=== PATIENT | female | born 1945 | race Caucasian/White ===

== ENCOUNTER 2016-06-02 10:40 | Emergency (ER) | payer OTHER ==
[~2016-06-02] VITALS: Ht 157.5 cm; Wt 76.2 kg
[2016-06-02 10:41] VITALS: BP 143/74
[2016-06-02] MEDS ORDERED: PARO30TA PO (10:59)
[2016-06-02] MEDS ORDERED: KLOR20PO12 GT (10:59)
[2016-06-02] MEDS ORDERED: one a day (10:59)
[2016-06-02] MEDS ORDERED: SIMV20TA2 PO (10:59)
[2016-06-02] MEDS ORDERED: BYDU1INJ SC (10:59)
[2016-06-02] MEDS ORDERED: METO-209 PO (10:59)
[2016-06-02] MEDS ORDERED: CALC600T57 PO (10:59)
[2016-06-02] MEDS ORDERED: ALPR2TAB3 PO (10:59)
[2016-06-02] MEDS ORDERED: AMLO1TAB36 PO (10:59)
[2016-06-02] MEDS ORDERED: NASA1SPR (10:59)
[2016-06-02] MEDS ORDERED: HYDR12.55 PO (10:59)
[2016-06-02] MEDS ORDERED: METF1000 PO (10:59)
[2016-06-02] MEDS ORDERED: DOXA1TAB73 PO (10:59)
--- NOTE | 2016-06-02 12:23 | REP ---
RIGHT HUMERUS: 06/02/2016 CLINICAL HISTORY: Trauma. COMPARISON: Right shoulder 06/23/2013. FINDINGS: Two views show a right total shoulder arthroplasty present since the severely comminuted humeral head and neck fracture in 2013. The two articular components are unremarkable. No hardware failure. No acute fracture. AC joint arthritis, but no fracture of the clavicle, ribs, visible scapula or humerus. IMPRESSION: 1. No acute fracture. A right total shoulder arthroplasty evident. No hardware failure. Signed by Jose Daniel Barrow MD 06/02/2016 05:16 P
--- NOTE | 2016-06-02 12:24 | REP ---
RIGHT WRIST COMPLETE: 06/02/2016 COMPARISON: 06/30/2013. CLINICAL HISTORY: Trauma. FINDINGS: Four views show the distal radius and ulna grossly intact without fracture or avulsion. The carpal bones and their joint spaces are preserved. There is very minimal degenerative change in some of the carpal joints. First CMC joint degenerative changes are noted. The other CMC joints show lesser degenerative change. There is no fracture visible in the proximal metacarpals. IMPRESSION: 1. Some soft tissue swelling dorsal aspect of the wrist but no visible fracture, avulsion or subluxation. Degenerative changes are noted at the first CMC joint and to a lesser extent the carpal articulations. Signed by Jose Daniel Barrow MD 06/02/2016 05:16 P
== END 2016-06-02 12:23 | disposition home or self-care (01) ==
LOC: M ED 11:30
DX: S63.521A Sprain of radiocarpal joint of right wrist, initial encounter (principal); W19.XXXA Unspecified fall, initial encounter; Y92.89 Other specified places as the place of occurrence of the external cause; Y93.89 Activity, other specified; Y99.0 Civilian activity done for income or pay; Z96.611 Presence of right artificial shoulder joint; Z88.0 Allergy status to penicillin; Z88.1 Allergy status to other antibiotic agents; Z79.899 Other long term (current) drug therapy; Z79.84 Long term (current) use of oral hypoglycemic drugs

== ENCOUNTER → 2016-08-07 | Outpatient (REF) | payer OTHER ==
[~2016-08-07] MED LIST: ALPR2TAB3 PO; AMLO1TAB36 PO; BYDU1INJ SC; CALC600T57 PO; DOXA1TAB73 PO; HYDR12.55 PO; KLOR20PO12 GT; METF1000 PO; METO-209 PO; NASA1SPR; PARO30TA PO; SIMV20TA2 PO; one a day
[2016-08-07 13:14] LABS: ALBUMIN/GLOBULIN RATIO 1.33 (1.00-1.93); ALKALINE PHOSPHATASE 85 U/L (45-117); ALT/SGPT 25 U/L (12-78); ANION GAP 8 MEQ/L (8-16); AST/SGOT 12 U/L (15-37); BILIRUBIN,TOTAL 0.5 MG/DL (0.2-1.0); BLOOD UREA NITROGEN 18 MG/DL (7-18); CALCIUM LEVEL 9.5 MG/DL (8.8-10.2); CARBON DIOXIDE LEVEL 27 MEQ/L (21-32); CHLORIDE LEVEL 102 MEQ/L (98-107); CHOLESTEROL LEVEL 136 MG/DL (<200); CREATININE FOR GFR 0.76 MG/DL (0.55-1.02); GLOMERULAR FILTRATION RATE > 60.0 (>45); GLUCOSE, FASTING 152 MG/DL (80-110); POTASSIUM SERUM 3.8 MEQ/L (3.5-5.1); SODIUM LEVEL 137 MEQ/L (136-145); TRIGLYCERIDES LEVEL 165 MG/DL (<150)
[2016-08-07 13:27] LABS: MEAN CORPUSCULAR HEMOGLOBIN 32.3 pg (27.0-33.0); MEAN CORPUSCULAR HGB CONC 34.1 g/dl (32.0-36.5); MEAN CORPUSCULAR VOLUME 94.9 fl (80.0-96.0); RED CELL DISTRIBUTION WIDTH 13.1 % (11.5-14.5); WHITE BLOOD COUNT 6.4 K/mm3 (4.0-10.0)
== END ==
LOC: M SFHCPLAZ 07:55
PROVIDERS: ATTEND Internal Medicine
DX: J30.9 Allergic rhinitis, unspecified (principal); E11.9 Type 2 diabetes mellitus without complications; E78.00 Pure hypercholesterolemia, unspecified

== ENCOUNTER → 2017-02-20 | Outpatient (REF) | payer OTHER ==
[2017-02-20 11:50] LABS: ALBUMIN 3.8 GM/DL (3.2-5.2); ALBUMIN/GLOBULIN RATIO 1.27 (1.00-1.93); ALKALINE PHOSPHATASE 80 U/L (45-117); ALT/SGPT 22 U/L (12-78); ANION GAP 7 MEQ/L (8-16); AST/SGOT 17 U/L (7-37); BILIRUBIN,TOTAL 0.6 MG/DL (0.2-1.0); BLOOD UREA NITROGEN 15 MG/DL (7-18); CALCIUM LEVEL 9.3 MG/DL (8.8-10.2); CARBON DIOXIDE LEVEL 29 MEQ/L (21-32); CHLORIDE LEVEL 105 MEQ/L (98-107); CREATININE FOR GFR 0.66 MG/DL (0.55-1.02); GLOMERULAR FILTRATION RATE > 60.0 (>45); GLUCOSE, FASTING 152 MG/DL (80-110); MAGNESIUM LEVEL 2.1 MG/DL (1.8-2.4); SODIUM LEVEL 141 MEQ/L (136-145); TOTAL PROTEIN 6.8 GM/DL (6.4-8.2)
[2017-02-20 12:03] LABS: ESTIMATED AVERAGE GLUCOSE 131 MG/DL (60-110)
== END ==
LOC: M SFHCPLAZ 11:09
DX: E11.9 Type 2 diabetes mellitus without complications (principal); I10 Essential (primary) hypertension

== ENCOUNTER → 2017-09-11 | Outpatient (REF) | payer OTHER ==
[2017-09-11 10:04] LABS: HEMATOCRIT 43.7 % (36.0-47.0); HEMOGLOBIN 14.7 g/dl (12.0-15.5); MEAN CORPUSCULAR HEMOGLOBIN 30.6 pg (27.0-33.0); MEAN CORPUSCULAR HGB CONC 33.6 g/dl (32.0-36.5); PLATELET COUNT, AUTOMATED 240 10^3/uL (150-450); RED CELL DISTRIBUTION WIDTH 12.4 % (11.5-14.5); WHITE BLOOD COUNT 5.1 10^3/uL (4.0-10.0)
[2017-09-11 10:31] LABS: ALBUMIN 3.8 GM/DL (3.2-5.2); ALBUMIN/GLOBULIN RATIO 1.15 (1.00-1.93); ALKALINE PHOSPHATASE 80 U/L (45-117); ALT/SGPT 38 U/L (12-78); ANION GAP 10 MEQ/L (8-16); AST/SGOT 24 U/L (7-37); BILIRUBIN,TOTAL 0.5 MG/DL (0.2-1.0); BLOOD UREA NITROGEN 15 MG/DL (7-18); CALCIUM LEVEL 9.6 MG/DL (8.8-10.2); CARBON DIOXIDE LEVEL 26 MEQ/L (21-32); CHLORIDE LEVEL 105 MEQ/L (98-107); CHOLESTEROL LEVEL 124 MG/DL (<200); CHOLESTEROL RISK RATIO 2.755 (<5); CREATININE FOR GFR 0.77 MG/DL (0.55-1.30); GLOMERULAR FILTRATION RATE > 60.0 (>39); GLUCOSE, FASTING 197 MG/DL (70-100); HDL CHOLESTEROL 45 MG/DL (>40); LDL CHOLESTEROL 45.8 MG/DL (<100); MAGNESIUM LEVEL 1.8 MG/DL (1.8-2.4); NON-HDL-C 79 MG/DL; POTASSIUM SERUM 3.8 MEQ/L (3.5-5.1); SODIUM LEVEL 141 MEQ/L (136-145); TOTAL 25(OH) VITAMIN D 36.8 NG/ML (30.0-100.0); TOTAL PROTEIN 7.1 GM/DL (6.4-8.2); TRIGLYCERIDES LEVEL 166 MG/DL (<150)
[2017-09-11 12:09] LABS: ESTIMATED AVERAGE GLUCOSE 169 MG/DL (60-110); HEMOGLOBIN A1c 7.5 %
[2017-09-11 15:10] LABS: MALB URINE SIEMENS 17.1 MG/L; MAU/CREAT RATIO 14.7 MCG/MG (0.0-30.0)
== END ==
LOC: M SFHCPLAZ 08:03
DX: K21.9 Gastro-esophageal reflux disease without esophagitis (principal); I10 Essential (primary) hypertension; E11.9 Type 2 diabetes mellitus without complications; E78.00 Pure hypercholesterolemia, unspecified; F34.1 Dysthymic disorder; M85.80 Other specified disorders of bone density and structure, unspecified site
CPT/HCPCS: 83735

== ENCOUNTER 2017-10-16 10:48 | Emergency (ER) | payer OTHER ==
[2017-10-16] MEDS: IBUPROFEN 600 MG TAB PO (11:32)
== END 2017-10-16 13:31 | disposition home or self-care (01) ==
LOC: M ED 10:48
DX: S22.31XA Fracture of one rib, right side, initial encounter for closed fracture (principal); S93.401A Sprain of unspecified ligament of right ankle, initial encounter; W18.42XA Slipping, tripping and stumbling without falling due to stepping into hole or opening, initial encounter; Y92.019 Unspecified place in single-family (private) house as the place of occurrence of the external cause
CPT/HCPCS: 71101

== ENCOUNTER 2017-11-19 02:21 | Emergency (ER) | payer OTHER ==
[2017-11-19] MEDS: DIGOXIN INJ 0.5 MG/2 ML AMP (J1160) IV (03:01)
[2017-11-19 03:02] LABS: BASO % 0.6 % (0.0-1.0); EOS # 0.2 10^3/uL (0.0-0.50); EOS % 3.1 % (0.0-3.0); HEMATOCRIT 46.3 % (36.0-47.0); HEMOGLOBIN 15.6 g/dl (12.0-15.5); IMMATURE GRANULOCYTE % 0.5 % (0-3.0); LYMPH # 2.2 10^3/uL (1.5-4.5); LYMPH % 33.8 % (24.0-44.0); MEAN CORPUSCULAR HEMOGLOBIN 30.9 pg (27.0-33.0); MEAN CORPUSCULAR HGB CONC 33.7 g/dl (32.0-36.5); MEAN CORPUSCULAR VOLUME 91.7 fl (80.0-96.0); MONO # 0.5 10^3/uL (0.0-0.8); MONO % 7.8 % (0.0-5.0); NEUTROPHILS # 3.5 10^3/uL (1.8-7.7); NEUTROPHILS % 54.2 % (36.0-66.0); PLATELET COUNT, AUTOMATED 266 10^3/uL (150-450); RED BLOOD COUNT 5.05 10^6/uL (4.00-5.40); RED CELL DISTRIBUTION WIDTH 12.8 % (11.5-14.5); WHITE BLOOD COUNT 6.4 10^3/uL (4.0-10.0)
[2017-11-19] MEDS ORDERED: METOPROLOL 5 MG/5 ML VIAL As Ordered (03:12)
[2017-11-19] MEDS: METOPROLOL 5 MG/5 ML VIAL IV ×2 (03:17→03:30)
[2017-11-19 03:30] LABS: ANION GAP 10 MEQ/L (8-16); BLOOD UREA NITROGEN 12 MG/DL (7-18); CALCIUM LEVEL 9.1 MG/DL (8.8-10.2); CARBON DIOXIDE LEVEL 27 MEQ/L (21-32); CHLORIDE LEVEL 107 MEQ/L (98-107); CK-MB VALUE MASS < 1.0 NG/ML (<3.6); CPK CREATINE PHOSPHOKINASE 64 U/L (26-192); CREATININE FOR GFR 0.72 MG/DL (0.55-1.30); FREE THYROXINE INDEX 3.5 % (1.3-4.8); GLOMERULAR FILTRATION RATE > 60.0 (>39); GLUCOSE, FASTING 234 MG/DL (70-100); MB/CK RELATIVE INDEX 1.56 (< OR =4); POTASSIUM SERUM 3.7 MEQ/L (3.5-5.1); SODIUM LEVEL 144 MEQ/L (136-145); T UPTAKE 30 % (30-39); THYROXINE (T4) 11.7 UG/DL (4.5-12.0); TROPONIN I < 0.02 NG/ML (< 0.10)
[2017-11-19] MEDS: AMIODARONE 150MG/3ML INJ (J0282) IVP ×2 (03:53→05:16)
[2017-11-19] MEDS ORDERED: AMIODARONE 150MG/3ML INJ (J0282) IVP (03:59)
[2017-11-19] MEDS: AMIODARONE 200 MG TAB (PACERONE) PO (04:17)
[2017-11-19] MEDS ORDERED: AMIODARONE HCL 150 MG/100 ML PREMIXED BAG (NEXTERONE) As Ordered (05:11)
[2017-11-19] MEDS: ASPIRIN 325 MG TAB PO (05:30)
== END 2017-11-19 05:55 | disposition home or self-care (01) ==
LOC: M ED 02:21
DX: I48.91 Unspecified atrial fibrillation (principal); E11.9 Type 2 diabetes mellitus without complications; I10 Essential (primary) hypertension; E78.5 Hyperlipidemia, unspecified; Z79.899 Other long term (current) drug therapy; Z79.84 Long term (current) use of oral hypoglycemic drugs; Z88.0 Allergy status to penicillin; Z88.1 Allergy status to other antibiotic agents
CPT/HCPCS: J1160

== ENCOUNTER → 2017-12-18 | Outpatient (CLI) | payer OTHER | LOC: M RAD 16:00 | DX: I65.23 Occlusion and stenosis of bilateral carotid arteries (principal) | CPT/HCPCS: 93880 ==

== ENCOUNTER → 2017-12-21 | Outpatient (REF) | payer OTHER ==
[2017-12-21 18:50] LABS: ALBUMIN 4.2 GM/DL (3.2-5.2); ALBUMIN/GLOBULIN RATIO 1.17 (1.00-1.93); ALKALINE PHOSPHATASE 105 U/L (45-117); ALT/SGPT 42 U/L (12-78); ANION GAP 11 MEQ/L (8-16); AST/SGOT 28 U/L (7-37); BILIRUBIN,TOTAL 0.6 MG/DL (0.2-1.0); BLOOD UREA NITROGEN 23 MG/DL (7-18); CARBON DIOXIDE LEVEL 26 MEQ/L (21-32); CHLORIDE LEVEL 100 MEQ/L (98-107); CREATININE FOR GFR 0.85 MG/DL (0.55-1.30); GLOMERULAR FILTRATION RATE > 60.0 (>39); GLUCOSE, FASTING 146 MG/DL (70-100); MAGNESIUM LEVEL 1.6 MG/DL (1.8-2.4); NT-PRO BNP 24 PG/ML (<125); POTASSIUM SERUM 3.6 MEQ/L (3.5-5.1); SODIUM LEVEL 137 MEQ/L (136-145); TOTAL PROTEIN 7.8 GM/DL (6.4-8.2)
== END ==
LOC: M LABDRAWP 17:28
DX: I11.9 Hypertensive heart disease without heart failure (principal)

== ENCOUNTER → 2017-12-24 | Outpatient (CLI) | payer OTHER | LOC: M RAD 06:31 | DX: M25.571 Pain in right ankle and joints of right foot (principal) | CPT/HCPCS: 73721 ==

== ENCOUNTER → 2018-01-29 | Outpatient (REF) | payer OTHER ==
[2018-01-29 18:24] LABS: ALBUMIN 3.9 GM/DL (3.2-5.2); ANION GAP 10 MEQ/L (8-16); BLOOD UREA NITROGEN 17 MG/DL (7-18); CALCIUM LEVEL 9.4 MG/DL (8.8-10.2); CARBON DIOXIDE LEVEL 31 MEQ/L (21-32); CHLORIDE LEVEL 100 MEQ/L (98-107); CREATININE FOR GFR 1.03 MG/DL (0.55-1.30); GLOMERULAR FILTRATION RATE 56.4 (>39); GLUCOSE, FASTING 207 MG/DL (70-100); MAGNESIUM LEVEL 1.4 MG/DL (1.8-2.4); PHOSPHORUS LEVEL 2.9 MG/DL (2.5-4.9); SODIUM LEVEL 141 MEQ/L (136-145)
== END ==
LOC: M LABDRAWP 15:41
DX: I11.9 Hypertensive heart disease without heart failure (principal)
CPT/HCPCS: 83735

== ENCOUNTER → 2018-03-16 | Outpatient (REF) | payer OTHER ==
[~2018-03-16] MED LIST changes: -AMLO1TAB36 PO; +AMLO1TAB37 PO; -DOXA1TAB73 PO; +DOXA8TAB2 PO; -METF1000 PO; +METF10004 PO; -METO-209 PO; +METO1TAB33 PO; +knee scooter
[2018-03-16 18:24] LABS: BILIRUBIN,TOTAL 0.8 MG/DL (0.2-1.0); CALCIUM LEVEL 10.3 MG/DL (8.8-10.2); CREATININE FOR GFR 1.07 MG/DL (0.55-1.30); MAGNESIUM LEVEL 1.9 MG/DL (1.8-2.4); TOTAL PROTEIN 7.3 GM/DL (6.4-8.2)
[2018-03-16 18:38] LABS: HEMOGLOBIN A1c 7.4 %
== END ==
LOC: M SFHCPLAZ 15:32
PROVIDERS: ATTEND Internal Medicine
DX: I10 Essential (primary) hypertension (principal); E11.9 Type 2 diabetes mellitus without complications; Z11.59 Encounter for screening for other viral diseases

== ENCOUNTER → 2018-03-16 | Outpatient (REF) | payer OTHER ==
[2018-03-16 18:20] LABS: CALCIUM LEVEL 10.4 MG/DL (8.8-10.2); CREATININE FOR GFR 1.12 MG/DL (0.55-1.30); GLOMERULAR FILTRATION RATE 51.2 (>39); MAGNESIUM LEVEL 1.8 MG/DL (1.8-2.4); PHOSPHORUS LEVEL 3.6 MG/DL (2.5-4.9)
== END ==
LOC: M LABDRAWP 15:38
PROVIDERS: ATTEND Internal Medicine Cardiovascular Disease
DX: E83.42 Hypomagnesemia (principal); I11.9 Hypertensive heart disease without heart failure

== ENCOUNTER → 2018-09-22 | Outpatient (REF) | payer OTHER ==
[2018-09-22 13:02] LABS: HEMATOCRIT 35.8 % (36.0-47.0); HEMOGLOBIN 11.9 g/dl (12.0-15.5); MEAN CORPUSCULAR HEMOGLOBIN 31.8 pg (27.0-33.0); MEAN CORPUSCULAR HGB CONC 33.2 g/dl (32.0-36.5); MEAN CORPUSCULAR VOLUME 95.7 fl (80.0-96.0); PLATELET COUNT, AUTOMATED 290 10^3/uL (150-450); RED BLOOD COUNT 3.74 10^6/uL (4.00-5.40); WHITE BLOOD COUNT 6.9 10^3/uL (4.0-10.0)
[2018-09-22 13:15] LABS: ALBUMIN 3.9 GM/DL (3.2-5.2); BILIRUBIN,TOTAL 0.5 MG/DL (0.2-1.0); CALCIUM LEVEL 9.7 MG/DL (8.8-10.2); CHOLESTEROL RISK RATIO 3.054 (<5); CREATININE FOR GFR 1.06 MG/DL (0.55-1.30); GLOMERULAR FILTRATION RATE 54.4 (>39); MAGNESIUM LEVEL 1.8 MG/DL (1.8-2.4); POTASSIUM SERUM 4.1 MEQ/L (3.5-5.1); TOTAL PROTEIN 7.1 GM/DL (6.4-8.2)
[2018-09-22 13:42] LABS: HEMOGLOBIN A1c 6.9 %
== END ==
LOC: M SFHCPLAZ 09:31
PROVIDERS: ATTEND Internal Medicine
DX: K21.9 Gastro-esophageal reflux disease without esophagitis (principal); I10 Essential (primary) hypertension; E11.9 Type 2 diabetes mellitus without complications; E78.00 Pure hypercholesterolemia, unspecified

== ENCOUNTER → 2019-03-01 | Outpatient (CLI) | payer OTHER ==
[~2019-03-01] MED LIST changes: -SIMV20TA2 PO; +SIMV20TA22 PO
[2019-03-01 10:18] LABS: HEMATOCRIT 39.2 % (36.0-47.0); HEMOGLOBIN 12.7 g/dl (12.0-15.5); MEAN CORPUSCULAR HEMOGLOBIN 31.5 pg (27.0-33.0); MEAN CORPUSCULAR HGB CONC 32.4 g/dl (32.0-36.5); MEAN CORPUSCULAR VOLUME 97.3 fl (80.0-96.0); PLATELET COUNT, AUTOMATED 265 10^3/uL (150-450); RED BLOOD COUNT 4.03 10^6/uL (4.00-5.40); WHITE BLOOD COUNT 5.7 10^3/uL (4.0-10.0)
[2019-03-01 11:50] LABS: ALBUMIN 3.8 GM/DL (3.2-5.2); BILIRUBIN,TOTAL 1.2 MG/DL (0.2-1.0); CALCIUM LEVEL 9.5 MG/DL (8.8-10.2); CHOLESTEROL RISK RATIO 3.857 (<5); CREATININE FOR GFR 1.12 MG/DL (0.55-1.30); GLOMERULAR FILTRATION RATE 51.1 (>39); POTASSIUM SERUM 4.7 MEQ/L (3.5-5.1); THYROID STIMULATING HORMONE 1.41 uIU/ML (0.358-3.740); TOTAL PROTEIN 7.2 GM/DL (6.4-8.2)
[2019-03-01 14:37] LABS: HEMOGLOBIN A1c 9.8 %
== END ==
LOC: M PLALAB 08:12
PROVIDERS: ATTEND Internal Medicine
DX: E11.9 Type 2 diabetes mellitus without complications (principal); Z12.11 Encounter for screening for malignant neoplasm of colon; I10 Essential (primary) hypertension; E78.00 Pure hypercholesterolemia, unspecified; K21.9 Gastro-esophageal reflux disease without esophagitis; F34.1 Dysthymic disorder

== ENCOUNTER → 2019-03-04 | Outpatient (REF) | payer OTHER ==
[2019-03-04 11:51] LABS: CREATININE, URINE 82.7 MG/DL; MAU/CREAT RATIO 7.2 MCG/MG (0.0-30.0)
== END ==
LOC: M SFHCPLAZ 10:36
PROVIDERS: ATTEND Internal Medicine
DX: E11.9 Type 2 diabetes mellitus without complications (principal); F34.1 Dysthymic disorder

== ENCOUNTER → 2019-06-20 | Outpatient (REF) | payer OTHER ==
[~2019-06-20] MED LIST changes: +ALEN70SO PO; +ATOR80TA59 PO; +CARV25TA PO; +CHLO125TA PO; +DIGO0.123 PO; +ELIQ5TAB PO; +FOSA70TA PO; +K-TA10TA PO; +LISI10TA4 PO; +NASA1SPR NARES; +SPIR-10 PO
[2019-06-20 13:26] LABS: HEMATOCRIT 38.5 % (36.0-47.0); HEMOGLOBIN 12.8 g/dl (12.0-15.5); MEAN CORPUSCULAR HEMOGLOBIN 31.4 pg (27.0-33.0); MEAN CORPUSCULAR HGB CONC 33.2 g/dl (32.0-36.5); MEAN CORPUSCULAR VOLUME 94.4 fl (80.0-96.0); PLATELET COUNT, AUTOMATED 332 10^3/uL (150-450); RED BLOOD COUNT 4.08 10^6/uL (4.00-5.40); WHITE BLOOD COUNT 8.4 10^3/uL (4.0-10.0)
[2019-06-20 13:29] LABS: CALCIUM LEVEL 10.3 MG/DL (8.8-10.2); CREATININE FOR GFR 1.1 MG/DL (0.55-1.30); POTASSIUM SERUM 4.7 MEQ/L (3.5-5.1)
[2019-06-20 13:36] LABS: INR 1.28; PROTHROMBIN TIME 15.7 SECONDS (11.8-14.0)
[2019-06-20 13:37] LABS: PARTIAL THROMBOPLASTIN TIME 30.2 SECONDS (25.0-38.4)
== END ==
LOC: M SFHCPLAZ 11:09
PROVIDERS: ATTEND Physician Assistant
DX: Z01.818 Encounter for other preprocedural examination (principal)

== ENCOUNTER → 2019-06-21 | Outpatient (CLI) | payer OTHER | LOC: M LABSMTC 10:47 | PROVIDERS: ATTEND Anesthesiology | DX: Z01.818 Encounter for other preprocedural examination (principal); Z11.59 Encounter for screening for other viral diseases ==

== ENCOUNTER 2019-06-23 06:05 | Day surgery (SDC) | payer OTHER ==
[~2019-06-23] VITALS: Ht 157.5 cm; Wt 58.5 kg
[~2019-06-23 06:05] MED LIST changes: +LIDOCAINE 1% MDV 20ML VIAL SQ PRN; +LR 1,000 ML IV ONE; +ceFAZolin SOD 2 GM in IV 1 EA IV ONE
[2019-06-23] MEDS ORDERED: HumaLOG INSULIN (NovoLOG) PER UNIT As Ordered ONE (07:10)
[2019-06-23] MEDS ORDERED: fentaNYL 250 MCG/5 ML INJECTION (J3010) As Ordered ONE (07:12)
[2019-06-23] MEDS ORDERED: MIDAZOLAM INJ 2MG/2ML VIAL (J2250 PER 1MG) As Ordered ONE (07:12)
[2019-06-23] MEDS ORDERED: propofoL 200 MG/20 ML VIAL As Ordered ONE (07:12)
[2019-06-23] MEDS ORDERED: LIDOCAINE 2% 100MG/5ML SDV (FOR ANES.) As Ordered ONE (07:12)
[2019-06-23] MEDS ORDERED: ONDANSETRON 4MG/2ML VIAL As Ordered ONE (07:12)
[2019-06-23] MEDS ORDERED: dexameTHASONE 4 MG/ML 1ML VIAL (J1100 PER 1MG) As Ordered ONE (07:12)
[2019-06-23] MEDS ORDERED: HumaLOG INSULIN (NovoLOG) PER UNIT SC ONE ×2 (07:30→09:45)
[2019-06-23] MEDS ORDERED: PHENYLephrine HCL 500 MCG/5 ML (100MCG/ML) SYRINGE (J2370) As Ordered ONE (07:58)
[2019-06-23] MEDS ORDERED: HYDROMORPHONE HCL 0.5 MG/ 0.5 ML SYRINGE (J1170 PER 1) IV PRN (09:45)
[2019-06-23] MEDS ORDERED: ONDANSETRON 4MG/2ML VIAL IV PRN ×2 (09:45)
[2019-06-23] MEDS ORDERED: NORCO, ANEXSIA 5/325MG TABLET (HYDROcodone/ACETAMINOPHEN) PO PRN (09:45)
[2019-06-23] MEDS ORDERED: LR 1,000 ML IV SCH ×2 (09:45)
[2019-06-23] MEDS ORDERED: MORPHINE 2 MG/ML 1ML VIAL (J2270) IV PRN (09:45)
[2019-06-23] MEDS ORDERED: ACETAMINOPHEN TAB 650MG DOSE (2X325MG) PO PRN (09:45)
--- NOTE | 2019-06-23 09:50 | REP ---
LEFT WRIST: Three views. HISTORY: Left wrist fracture. Intraoperative imaging. 64 seconds of fluoroscopy is reported. FINDINGS: A sequence of three last image hold fluoroscopically obtained spot radiographs of the left wrist document open reduction and internal fixation for distal radial fracture. Electronically Signed by Ottoniel Guzman MD 06/23/2019 11:38 A
[2019-06-23] MEDS: oxyCODONE 5MG TAB PO PRN ×2 (10:00→10:33)
[2019-06-23] MEDS: fentaNYL 100 MCG/2 ML INJECTION (J3010) IV PRN ×3 (10:02→10:34)
[2019-06-23] MEDS ORDERED: ACETAMINOPHEN 1000MG 100ML IV BTL (OFIRMEV) (J0131 PER 10MG) As Ordered ONE (10:13)
[2019-06-23] MEDS ORDERED: ACETAMINOPHEN *IV* 1,000 MG IV ONE ×2 (10:30)
--- NOTE | 2019-06-23 10:48 | RO ---
DATE OF PROCEDURE: 06/23/2019 PREOPERATIVE DIAGNOSIS: Left distal radius fracture. POSTOPERATIVE DIAGNOSIS: Left distal radius fracture. PLANNED PROCEDURE: Left distal radius open reduction and internal fixation (ORIF). PROCEDURE PERFORMED: Left distal radius open reduction and internal fixation (ORIF). SURGEON: Josh Montesinos MD ASSIST: Blaze Davis PA-C FRUIT RAISER: Dr. Rose TYPE OF ANESTHETIC: General anesthetic. OPERATIVE PREAMBLE: This 74-year-old female sustained a volar Fox fracture. We talked about the pros and cons, risks and benefits of going ahead with open reduction/internal fixation versus nonoperative treatment. Nonoperative treatment typically has a high rate of carpal subluxation and continued displacement fracture. We discussed other surgical risks in preoperative holding, as well. Marked the left upper extremity and proceeded to surgery. OPERATIVE REPORT: The patient was brought to the operating room theater. They were administered general anesthetic. They were placed supine on the operating room table. Hand table was used at the patient's left side. Cast had been removed in preoperative holding. Tourniquet was applied to the left upper extremity, 18 inch and thoroughly padded, as well as all bony prominences appropriately padded. 2 grams of intravenous (IV) Ancef was administered. The bed was turned to 90 degrees. Intraoperative fluoroscopy was used. Preoperative time-out was performed to confirm the site and the patient of the surgery. The limb was prepped and draped the usual sterile fashion allowing over 3 minutes prep solution drying time prior to draping. Exsanguinated the limb using a sterile Esmarch bandage and elevated the limb and inflated the tourniquet to 250 mmHg. I began by making a 4-inch decision centered over the flexor carpi radialis (FCR) tendon on the volar side of the wrist. I carried dissection down through skin and subcutaneous tissue to meticulous hemostasis. I incised the FCR tendon sheath, as well as the subsheath. I retracted that radially. I identified the flexor pollicis longus (FPL) muscle belly and tendon. I retracted this ulnarly. I then identified the pronator quadratus and sharply dissected this off bone and tissue . I identified the fracture site. I attempted to achieve reduction using a precontoured plate. However, the fracture had begun to granulate, so I had to use a combination of #15 blade and elevators to elevate the fracture and achieve a proper anatomic reduction, as it had shortened. I attempted again to use precontoured plates. However, they were simply displacing the fracture and not fitting properly onto her anatomy; and as such, I elected to use a small T plate with 2.4 mm locking thread holes. I placed this on bone, precontoured, using slight in a buttress fashion. I inserted the proximal 2.4 mm screw using 1.8 mm drill into the oblong hole. I took intraoperative radiographs to ensure proper placement. I then inserted the two distal screws more towards the radial side. The ulnar sided distal hole was at the fracture site, so this was left empty. I then inserted one more screw proximally. I took intraoperative fluoroscopy to confirm proper reduction, including PA lateral and 30 degree tilt lateral to ensure proper joint view and placement of the screws at the level of the joint. Tourniquet was let down. I then thoroughly irrigated. Hemostasis achieved. Subcutaneous tissue was closed with interrupted 2-0 Vicryl and the skin with running 3-0 Monocryl. The skin was cleaned with wet and dry dressing, followed by application of Steri-Strips, Adaptic, 4 x 8 gauze, and overwrapped with sterile cast padding. A volar was placed over a sterile 4-inch Jake bandage. Tourniquet was taken down prior to ending the case. The patient was woken up from general anesthetic, transferred off the operative room table, and taken to postanesthetic care unit in stable condition. All sponge, needle, instrument counts were correct. ESTIMATED BLOOD LOSS: 10 mL. PLAN: The patient will be discharged home according to day surgery criteria. Followup in the office in 2 weeks' time, at which point we will start immediate range of motion of the wrist and check the wound.
[2019-06-23 12:55] VITALS: BP 120/55
== END 2019-06-23 13:10 | disposition home or self-care (01) ==
LOC: M SDC 06:05
PROVIDERS: ATTEND Orthopaedic Surgery Sports Medicine
DX: S52.562A Barton's fracture of left radius, initial encounter for closed fracture (principal); W01.0XXA Fall on same level from slipping, tripping and stumbling without subsequent striking against object, initial encounter; Y92.480 Sidewalk as the place of occurrence of the external cause; Y93.9 Activity, unspecified; Y99.0 Civilian activity done for income or pay; I10 Essential (primary) hypertension; E78.5 Hyperlipidemia, unspecified; I48.0 Paroxysmal atrial fibrillation; E11.9 Type 2 diabetes mellitus without complications; Z88.0 Allergy status to penicillin; K21.9 Gastro-esophageal reflux disease without esophagitis; Z79.01 Long term (current) use of anticoagulants; Z79.84 Long term (current) use of oral hypoglycemic drugs; Z79.899 Other long term (current) drug therapy
CPT/HCPCS: 25608; 76000; C1713; J0131; J0690; J1100; J2250; J2370; J2405; J3010

== ENCOUNTER → 2019-12-14 | Outpatient (REF) | payer OTHER ==
[~2019-12-14] MED LIST changes: -LIDOCAINE 1% MDV 20ML VIAL SQ PRN; -LR 1,000 ML IV ONE; -PARO30TA PO; +PARO30TA65 PO; -ceFAZolin SOD 2 GM in IV 1 EA IV ONE
[2019-12-14 11:41] LABS: ALBUMIN 3.6 GM/DL (3.2-5.2); BILIRUBIN,TOTAL 0.8 MG/DL (0.2-1.0); CALCIUM LEVEL 9.7 MG/DL (8.8-10.2); CHOLESTEROL RISK RATIO 2.813 (<5); CREATININE FOR GFR 1.08 MG/DL (0.55-1.30); GLOMERULAR FILTRATION RATE 53.1 (>39); POTASSIUM SERUM 4.7 MEQ/L (3.5-5.1); TOTAL PROTEIN 6.9 GM/DL (6.4-8.2)
[2019-12-14 11:47] LABS: HEMOGLOBIN A1c 9.9 %
== END ==
LOC: M PLALAB 08:14
PROVIDERS: ATTEND Internal Medicine
DX: I10 Essential (primary) hypertension (principal); E11.9 Type 2 diabetes mellitus without complications; E78.00 Pure hypercholesterolemia, unspecified

== ENCOUNTER → 2020-05-16 | Outpatient (REF) | payer OTHER ==
[~2020-05-16] MED LIST changes: +LISI10TA22 PO; -LISI10TA4 PO
[2020-05-16 18:06] LABS: BASO % 0.6 % (0.0-1.0); EOS # 0.2 10^3/uL (0.0-0.5); HEMATOCRIT 37.8 % (36.0-47.0); HEMOGLOBIN 12.7 g/dl (12.0-15.5); LYMPH # 1.6 10^3/uL (1.5-5.0); LYMPH % 24.2 % (24.0-44.0); MEAN CORPUSCULAR HEMOGLOBIN 31.5 pg (27.0-33.0); MEAN CORPUSCULAR HGB CONC 33.6 g/dl (32.0-36.5); MEAN CORPUSCULAR VOLUME 93.8 fl (80.0-96.0); MONO # 0.6 10^3/uL (0.0-0.8); MONO % 8.8 % (2.0-8.0); NEUTROPHILS # 4.2 10^3/uL (1.5-8.5); NEUTROPHILS % 62.8 % (36.0-66.0); PLATELET COUNT, AUTOMATED 270 10^3/uL (150-450); RED BLOOD COUNT 4.03 10^6/uL (4.00-5.40); WHITE BLOOD COUNT 6.7 10^3/uL (4.0-10.0)
[2020-05-16 18:33] LABS: HEMOGLOBIN A1c 11.3 %
[2020-05-16 18:44] LABS: ALBUMIN 3.9 GM/DL (3.2-5.2); BILIRUBIN,TOTAL 0.8 MG/DL (0.2-1.0); CALCIUM LEVEL 9.9 MG/DL (8.8-10.2); CHOLESTEROL RISK RATIO 2.93 (<5); CREATININE FOR GFR 1.1 MG/DL (0.55-1.30); GLOMERULAR FILTRATION RATE 51.8 (>39); POTASSIUM SERUM 4.3 MEQ/L (3.5-5.1); TOTAL PROTEIN 7.3 GM/DL (6.4-8.2)
== END ==
LOC: M SFHCPLAZ 14:41
PROVIDERS: ATTEND Internal Medicine
DX: I10 Essential (primary) hypertension (principal); E11.9 Type 2 diabetes mellitus without complications; E78.00 Pure hypercholesterolemia, unspecified; Z79.01 Long term (current) use of anticoagulants

== ENCOUNTER → 2020-05-17 | Outpatient (REF) | payer OTHER ==
[2020-05-17 10:53] LABS: CREATININE, URINE 72.3 MG/DL; MALB URINE SIEMENS 7.6 MG/L; MAU/CREAT RATIO 10.5 MCG/MG (0.0-30.0)
== END ==
LOC: M SFHCPLAZ 09:48
PROVIDERS: ATTEND Internal Medicine
DX: E11.9 Type 2 diabetes mellitus without complications (principal)

== ENCOUNTER 2020-09-21 11:29 | Outpatient (RCR) | payer MEDICARE, OTHER ==
[~2020-09-21 11:29] MED LIST changes: +ATOR1TAB21 PO; +TAMO20TA8 PO
== END 2020-09-22 ==
LOC: M ONCR 11:29
PROVIDERS: ATTEND General Practice
DX: C50.111 Malignant neoplasm of central portion of right female breast (principal)

== ENCOUNTER → 2020-10-23 | Outpatient (RCR) | payer OTHER, MEDICARE | LOC: M ONCR 09-24 11:28 | PROVIDERS: ATTEND General Practice | DX: C50.111 Malignant neoplasm of central portion of right female breast (principal) ==

== ENCOUNTER 2020-10-24 11:30 | Outpatient (RCR) | payer MEDICARE, OTHER | END 2020-11-22 | LOC: M ONCR 11:30 | PROVIDERS: ATTEND General Practice | DX: C50.111 Malignant neoplasm of central portion of right female breast (principal) ==

== ENCOUNTER → 2020-11-15 | Outpatient (CLI) | payer MEDICARE, OTHER ==
[2020-11-15 10:26] LABS: BASO % 0.7 % (0.0-1.0); EOS # 0.1 10^3/uL (0.0-0.5); EOS % 2.9 % (0.0-3.0); HEMATOCRIT 34.3 % (36.0-47.0); HEMOGLOBIN 11.4 g/dl (12.0-15.5); LYMPH # 0.7 10^3/uL (1.5-5.0); LYMPH % 14.5 % (24.0-44.0); MEAN CORPUSCULAR HEMOGLOBIN 31.9 pg (27.0-33.0); MEAN CORPUSCULAR HGB CONC 33.2 g/dl (32.0-36.5); MEAN CORPUSCULAR VOLUME 96.1 fl (80.0-96.0); MONO # 0.4 10^3/uL (0.0-0.8); MONO % 7.9 % (2.0-8.0); NEUTROPHILS # 3.3 10^3/uL (1.5-8.5); NEUTROPHILS % 73.6 % (36.0-66.0); PLATELET COUNT, AUTOMATED 232 10^3/uL (150-450); RED BLOOD COUNT 3.57 10^6/uL (4.00-5.40); WHITE BLOOD COUNT 4.5 10^3/uL (4.0-10.0)
[2020-11-15 10:43] LABS: HEMOGLOBIN A1c 6.2 %
[2020-11-15 10:57] LABS: ALBUMIN 3.4 GM/DL (3.2-5.2); BILIRUBIN,TOTAL 0.5 MG/DL (0.2-1.0); CALCIUM LEVEL 9.8 MG/DL (8.8-10.2); CHOLESTEROL RISK RATIO 3.176 (<5); CREATININE FOR GFR 1.08 MG/DL (0.55-1.30); GLOMERULAR FILTRATION RATE 52.9 (>39); MAGNESIUM LEVEL 1.9 MG/DL (1.8-2.4); POTASSIUM SERUM 4.2 MEQ/L (3.5-5.1); TOTAL PROTEIN 6.9 GM/DL (6.4-8.2)
== END ==
LOC: M PLALAB 08:33
PROVIDERS: ATTEND Internal Medicine
DX: Z79.01 Long term (current) use of anticoagulants (principal); E78.00 Pure hypercholesterolemia, unspecified

== ENCOUNTER → 2021-04-24 | Outpatient (CLI) | payer MEDICARE, OTHER ==
[~2021-04-24] MED LIST changes: -ALEN70SO PO; +ALEN70SO2 PO
== END ==
LOC: M ONCR 10:43
PROVIDERS: ATTEND General Practice
DX: C50.911 Malignant neoplasm of unspecified site of right female breast (principal); N60.31 Fibrosclerosis of right breast; R60.0 Localized edema; Z79.84 Long term (current) use of oral hypoglycemic drugs; Z79.899 Other long term (current) drug therapy; Z88.0 Allergy status to penicillin; Z88.1 Allergy status to other antibiotic agents; Z91.048 Other nonmedicinal substance allergy status; Z92.3 Personal history of irradiation

== ENCOUNTER → 2021-05-09 | Outpatient (CLI) | payer MEDICARE, OTHER ==
[2021-05-09 11:32] LABS: BASO % 0.4 % (0.0-1.0); EOS # 0.2 10^3/uL (0.0-0.5); EOS % 2.8 % (0.0-3.0); HEMATOCRIT 35.1 % (36.0-47.0); HEMOGLOBIN 11.6 g/dl (12.0-15.5); LYMPH # 0.9 10^3/uL (1.5-5.0); LYMPH % 16.5 % (24.0-44.0); MEAN CORPUSCULAR HEMOGLOBIN 31.4 pg (27.0-33.0); MEAN CORPUSCULAR VOLUME 95.1 fl (80.0-96.0); MONO # 0.5 10^3/uL (0.0-0.8); MONO % 8.4 % (2.0-8.0); NEUTROPHILS # 4.1 10^3/uL (1.5-8.5); NEUTROPHILS % 71.4 % (36.0-66.0); PLATELET COUNT, AUTOMATED 220 10^3/uL (150-450); RED BLOOD COUNT 3.69 10^6/uL (4.00-5.40); WHITE BLOOD COUNT 5.7 10^3/uL (4.0-10.0)
[2021-05-09 14:18] LABS: ALBUMIN 3.5 GM/DL (3.2-5.2); BILIRUBIN,TOTAL 0.4 MG/DL (0.2-1.0); CALCIUM LEVEL 9.9 MG/DL (8.8-10.2); CHOLESTEROL RISK RATIO 2.552 (<5); CREATININE FOR GFR 1.1 MG/DL (0.55-1.30); GLOMERULAR FILTRATION RATE 51.7 (>39); POTASSIUM SERUM 4.2 MEQ/L (3.5-5.1); THYROID STIMULATING HORMONE 2.24 uIU/ML (0.358-3.740); TOTAL PROTEIN 6.5 GM/DL (6.4-8.2)
== END ==
LOC: M PLALAB 08:57
PROVIDERS: ATTEND Internal Medicine
DX: E11.9 Type 2 diabetes mellitus without complications (principal)

== ENCOUNTER → 2021-10-25 | Outpatient (CLI) | payer MEDICARE, OTHER ==
[~2021-10-25] MED LIST changes: +ALEN70TA87 PO; -FOSA70TA PO
== END ==
LOC: M ONCR 10:16
PROVIDERS: ATTEND General Practice
DX: C50.911 Malignant neoplasm of unspecified site of right female breast (principal); N60.31 Fibrosclerosis of right breast; Z79.01 Long term (current) use of anticoagulants; Z79.84 Long term (current) use of oral hypoglycemic drugs; Z79.899 Other long term (current) drug therapy; Z79.810 Long term (current) use of selective estrogen receptor modulators (SERMs); Z88.0 Allergy status to penicillin; Z88.1 Allergy status to other antibiotic agents; Z91.048 Other nonmedicinal substance allergy status; Z92.3 Personal history of irradiation

== ENCOUNTER → 2021-11-26 | Outpatient (CLI) | payer MEDICARE, OTHER ==
[2021-11-26 13:51] LABS: HEMATOCRIT 37.4 % (36.0-47.0); HEMOGLOBIN 12.5 g/dl (12.0-15.5); MEAN CORPUSCULAR HEMOGLOBIN 31.8 pg (27.0-33.0); MEAN CORPUSCULAR HGB CONC 33.4 g/dl (32.0-36.5); MEAN CORPUSCULAR VOLUME 95.2 fl (80.0-96.0); PLATELET COUNT, AUTOMATED 258 10^3/uL (150-450); RED BLOOD COUNT 3.93 10^6/uL (4.00-5.40); WHITE BLOOD COUNT 6.1 10^3/uL (4.0-10.0)
[2021-11-26 14:10] LABS: HEMOGLOBIN A1c 8.2 %
[2021-11-26 14:46] LABS: ALBUMIN 3.4 GM/DL (3.2-5.2); BILIRUBIN,TOTAL 0.4 MG/DL (0.2-1.0); C REACTIVE PROTEIN QUANTITATIV 0.59 MG/DL (0.00-0.30); CALCIUM LEVEL 9.6 MG/DL (8.8-10.2); CHOLESTEROL RISK RATIO 2.232 (<5); CREATININE FOR GFR 1.12 MG/DL (0.55-1.30); FREE T4 1.12 NG/DL (0.76-1.46); GLOMERULAR FILTRATION RATE 50.6 (>39); POTASSIUM SERUM 4.2 MEQ/L (3.5-5.1); THYROID STIMULATING HORMONE 1.82 uIU/ML (0.358-3.740); TOTAL PROTEIN 6.6 GM/DL (6.4-8.2)
[2021-11-26 16:42] LABS: MALB URINE SIEMENS 22.2 MG/L; MAU/CREAT RATIO 19.4 MCG/MG (0.0-30.0)
[2021-11-28 00:07] LABS: TOTAL 25(OH) VITAMIN D 43.7 NG/ML (30.0-100.0)
== END ==
LOC: M PLALAB 10:17
PROVIDERS: ATTEND Internal Medicine Hematology
DX: E11.9 Type 2 diabetes mellitus without complications (principal)

== ENCOUNTER → 2022-05-02 | Outpatient (CLI) | payer MEDICARE, OTHER | LOC: M ONCR 11:01 | PROVIDERS: ATTEND General Practice | DX: C50.111 Malignant neoplasm of central portion of right female breast (principal); Z79.810 Long term (current) use of selective estrogen receptor modulators (SERMs); Z79.01 Long term (current) use of anticoagulants; Z79.51 Long term (current) use of inhaled steroids; Z79.899 Other long term (current) drug therapy; Z88.0 Allergy status to penicillin; Z88.1 Allergy status to other antibiotic agents; Z91.048 Other nonmedicinal substance allergy status; Z92.3 Personal history of irradiation ==

== ENCOUNTER → 2022-05-12 | Outpatient (CLI) | payer MEDICARE, OTHER ==
[2022-05-12 15:34] LABS: HEMATOCRIT 39.3 % (36.0-47.0); MEAN CORPUSCULAR HEMOGLOBIN 31.2 pg (27.0-33.0); MEAN CORPUSCULAR HGB CONC 33.1 g/dl (32.0-36.5); MEAN CORPUSCULAR VOLUME 94.2 fl (80.0-96.0); PLATELET COUNT, AUTOMATED 282 10^3/uL (150-450); RED BLOOD COUNT 4.17 10^6/uL (4.00-5.40); WHITE BLOOD COUNT 9.8 10^3/uL (4.0-10.0)
[2022-05-12 15:53] LABS: HEMOGLOBIN A1c 9.5 % (4.0-6.0)
[2022-05-12 15:59] LABS: C REACTIVE PROTEIN QUANTITATIV < 0.40 MG/DL (<1.0)
[2022-05-12 16:00] LABS: ALBUMIN 3.3 G/DL (3.2-5.2); ALKALINE PHOSPHATASE 57 U/L (46-116); ALT/SGPT 33 U/L (7.0-40); AST/SGOT 17 U/L (<34); BILIRUBIN,TOTAL 0.4 MG/DL (0.3-1.2); BLOOD UREA NITROGEN 21 MG/DL (9-23); CALCIUM LEVEL 10.3 MG/DL (8.3-10.6); CARBON DIOXIDE LEVEL 27 MMOL/L (20-31); CHLORIDE LEVEL 100 MMOL/L (98-107); CHOLESTEROL LEVEL 101 MG/DL (<200); CHOLESTEROL RISK RATIO 2.55 (<5); GLOMERULAR FILTRATION RATE > 60.0 (>39); GLUCOSE, FASTING 245 MG/DL (74-106); HDL CHOLESTEROL 39.5 MG/DL (>40); LDL CHOLESTEROL 13.5 MG/DL (<100); NON-HDL-C 61.5 MG/DL; POTASSIUM SERUM 4.1 MMOL/L (3.5-5.1); SODIUM LEVEL 135 MMOL/L (136-145); THYROID STIMULATING HORMONE 2.415 uIU/ML (0.55-4.78); TOTAL PROTEIN 6.2 G/DL (5.7-8.2); TRIGLYCERIDES LEVEL 240 MG/DL (<150)
[2022-05-12 16:01] LABS: FREE T4 1.09 NG/DL (0.89-1.76); TOTAL 25(OH) VITAMIN D 45.3 NG/ML (20.0-100.0); VITAMIN B12 LEVEL 746 PG/ML (211-911)
== END ==
LOC: M PLALAB 12:52
PROVIDERS: ATTEND Internal Medicine Hematology
DX: E11.9 Type 2 diabetes mellitus without complications (principal)

== ENCOUNTER → 2022-06-02 | Outpatient (CLI) | payer MEDICARE, OTHER | LOC: M WHC 11:04 | PROVIDERS: ATTEND General Practice | DX: C50.111 Malignant neoplasm of central portion of right female breast (principal); Z13.820 Encounter for screening for osteoporosis; M85.851 Other specified disorders of bone density and structure, right thigh; M85.88 Other specified disorders of bone density and structure, other site ==

== ENCOUNTER → 2022-08-20 | Outpatient (CLI) | payer MEDICARE, OTHER ==
[~2022-08-20] MED LIST changes: -K-TA10TA PO; +POTA-164 PO
[2022-08-20 16:37] LABS: HEMATOCRIT 37.1 % (36.0-47.0); HEMOGLOBIN 12.2 g/dl (12.0-15.5); MEAN CORPUSCULAR HEMOGLOBIN 31.7 pg (27.0-33.0); MEAN CORPUSCULAR HGB CONC 32.9 g/dl (32.0-36.5); MEAN CORPUSCULAR VOLUME 96.4 fl (80.0-96.0); PLATELET COUNT, AUTOMATED 296 10^3/uL (150-450); RED BLOOD COUNT 3.85 10^6/uL (4.00-5.40); WHITE BLOOD COUNT 7.6 10^3/uL (4.0-10.0)
[2022-08-20 16:48] LABS: HEMOGLOBIN A1c 6.1 % (4.0-6.0)
[2022-08-20 17:07] LABS: C REACTIVE PROTEIN QUANTITATIV 0.7 MG/DL (<1.0)
[2022-08-20 17:09] LABS: ALBUMIN 3.3 G/DL (3.2-5.2); BILIRUBIN,TOTAL 0.5 MG/DL (0.3-1.2); CALCIUM LEVEL 10.5 MG/DL (8.3-10.6); CREATININE FOR GFR 1.09 MG/DL (0.55-1.30); GLOMERULAR FILTRATION RATE 52.1 (>39); POTASSIUM SERUM 4.4 MMOL/L (3.5-5.1); TOTAL PROTEIN 6.3 G/DL (5.7-8.2)
== END ==
LOC: M PLALAB 14:27
PROVIDERS: ATTEND Internal Medicine Hematology
DX: E11.9 Type 2 diabetes mellitus without complications (principal)

== ENCOUNTER 2022-10-30 01:01 | Emergency (ER) | payer MEDICARE, OTHER ==
[~2022-10-30] VITALS: Ht 160 cm; Wt 80.9 kg
[~2022-10-30 01:01] MED LIST changes: -DOXA8TAB2 PO; +DOXA8TAB65 PO
[2022-10-30 01:45] LABS: VENOUS BASE EXCESS -3.6 (-2.0-2.0); VENOUS HCO3 21.6 MMOL/L (23.0-27.0); VENOUS O2 SATURATION 73.2 % (60.0-80.0); VENOUS PARTIAL PRESSURE CO2 39.8 mmHg (38.0-50.0); VENOUS PARTIAL PRESSURE O2 41.7 mmHg (30.0-50.0); VENOUS PH 7.353 UNITS (7.330-7.430); VENOUS STANDARD HCO3 20.9 MMOL/L; VENOUS TOTAL CO2 22.9 MMOL/L (24.0-28.0)
[2022-10-30 01:49] LABS: BASO # 0.1 10^3/uL (0.0-0.2); BASO % 0.6 % (0.0-1.0); EOS # 0.2 10^3/uL (0.0-0.5); EOS % 2.1 % (0.0-3.0); HEMATOCRIT 39.8 % (36.0-47.0); HEMOGLOBIN 13.2 g/dl (12.0-15.5); LYMPH # 1.3 10^3/uL (1.5-5.0); LYMPH % 13.8 % (24.0-44.0); MEAN CORPUSCULAR HEMOGLOBIN 31.2 pg (27.0-33.0); MEAN CORPUSCULAR HGB CONC 33.2 g/dl (32.0-36.5); MEAN CORPUSCULAR VOLUME 94.1 fl (80.0-96.0); MONO # 0.5 10^3/uL (0.0-0.8); MONO % 5.4 % (2.0-8.0); NEUTROPHILS # 7.5 10^3/uL (1.5-8.5); NEUTROPHILS % 77.8 % (36.0-66.0); PLATELET COUNT, AUTOMATED 315 10^3/uL (150-450); RED BLOOD COUNT 4.23 10^6/uL (4.00-5.40); WHITE BLOOD COUNT 9.7 10^3/uL (4.0-10.0)
[2022-10-30 02:16] LABS: ALBUMIN 3.8 G/DL (3.2-5.2); ALKALINE PHOSPHATASE 68 U/L (46-116); ALT/SGPT 22 U/L (7.0-40); AST/SGOT 22 U/L (<34); BILIRUBIN,DIRECT 0.2 MG/DL (<0.4); BILIRUBIN,TOTAL 0.7 MG/DL (0.3-1.2); BLOOD UREA NITROGEN 18 MG/DL (9-23); CALCIUM LEVEL 10.8 MG/DL (8.3-10.6); CARBON DIOXIDE LEVEL 24 MMOL/L (20-31); CHLORIDE LEVEL 99 MMOL/L (98-107); CK-MB VALUE MASS < 1.0 NG/ML (<3.6); CREATININE FOR GFR 1.19 MG/DL (0.55-1.30); GLOMERULAR FILTRATION RATE 47.1 (>39); GLUCOSE, FASTING 192 MG/DL (74-106); POTASSIUM SERUM 4.4 MMOL/L (3.5-5.1); SODIUM LEVEL 133 MMOL/L (136-145); TOTAL PROTEIN 7.6 G/DL (5.7-8.2)
[2022-10-30 02:18] LABS: THYROID STIMULATING HORMONE 8.648 uIU/ML (0.55-4.78)
[2022-10-30 02:32] LABS: CPK CREATINE PHOSPHOKINASE 44 U/L (34-145); MB/CK RELATIVE INDEX 2.27 (< OR =4)
[2022-10-30 02:47] LABS: HEMOGLOBIN A1c 5.7 % (4.0-6.0)
[2022-10-30] MEDS ORDERED: ONDA4TAB6 PO (04:44)
[2022-10-30 05:20] VITALS: BP 134/64; O2SAT 99
[2022-10-30 05:29] VITALS: TEMP 98.1
[2022-10-30 05:31] LABS: CPK CREATINE PHOSPHOKINASE 30 U/L (34-145)
[2022-10-30 05:35] LABS: CK-MB VALUE MASS < 1.0 NG/ML (<3.6); MB/CK RELATIVE INDEX 3.33 (< OR =4)
== END 2022-10-30 05:37 | disposition home or self-care (01) ==
LOC: M ED 01:01
DX: E11.649 Type 2 diabetes mellitus with hypoglycemia without coma (principal); T38.3X5A Adverse effect of insulin and oral hypoglycemic [antidiabetic] drugs, initial encounter; I11.9 Hypertensive heart disease without heart failure; I48.91 Unspecified atrial fibrillation; K21.9 Gastro-esophageal reflux disease without esophagitis; Z88.0 Allergy status to penicillin; Z88.1 Allergy status to other antibiotic agents; Z79.899 Other long term (current) drug therapy; Z79.01 Long term (current) use of anticoagulants; Z79.84 Long term (current) use of oral hypoglycemic drugs

== ENCOUNTER → 2022-11-04 | Outpatient (CLI) | payer MEDICARE, OTHER ==
[~2022-11-04] MED LIST changes: +ONDA4TAB6 PO
== END ==
LOC: M ONCR 10:50
PROVIDERS: ATTEND General Practice
DX: C50.111 Malignant neoplasm of central portion of right female breast (principal); Z71.2 Person consulting for explanation of examination or test findings; Z79.01 Long term (current) use of anticoagulants; Z79.51 Long term (current) use of inhaled steroids; Z79.810 Long term (current) use of selective estrogen receptor modulators (SERMs); Z79.84 Long term (current) use of oral hypoglycemic drugs; Z79.85 Long-term (current) use of injectable non-insulin antidiabetic drugs; Z79.899 Other long term (current) drug therapy; Z88.0 Allergy status to penicillin; Z88.1 Allergy status to other antibiotic agents; Z91.048 Other nonmedicinal substance allergy status; Z92.3 Personal history of irradiation

== ENCOUNTER → 2023-09-29 | Outpatient (CLI) | payer MEDICARE, OTHER ==
[~2023-09-29] MED LIST changes: +CITA20TA6; +GLUC1AUT; +ONDA-282 PO; -ONDA4TAB6 PO; +POTA-151; +SEMA0.257; +TOUJ300I2
[2023-09-29 13:01] LABS: HEMATOCRIT 39.5 % (36.0-47.0); MEAN CORPUSCULAR HGB CONC 32.9 g/dl (32.0-36.5); MEAN CORPUSCULAR VOLUME 94.3 fl (80.0-96.0); PLATELET COUNT, AUTOMATED 241 10^3/uL (150-450); RED BLOOD COUNT 4.19 10^6/uL (4.00-5.40); WHITE BLOOD COUNT 7.2 10^3/uL (4.0-10.0)
[2023-09-29 13:06] LABS: ALBUMIN 3.6 G/DL (3.2-5.2); BILIRUBIN,TOTAL 0.5 MG/DL (0.3-1.2); CALCIUM LEVEL 10.1 MG/DL (8.3-10.6); CHOLESTEROL RISK RATIO 2.75 (<5); GLOMERULAR FILTRATION RATE 57.4 (>39); HDL CHOLESTEROL 40.3 MG/DL (>40); LDL CHOLESTEROL 38.1 MG/DL (<100); NON-HDL-C 70.7 MG/DL; POTASSIUM SERUM 4.5 MMOL/L (3.5-5.1); TOTAL PROTEIN 6.9 G/DL (5.7-8.2)
[2023-09-29 13:07] LABS: TOTAL 25(OH) VITAMIN D 52.1 NG/ML (20.0-100.0)
[2023-09-29 13:08] LABS: FREE T4 1.13 NG/DL (0.89-1.76); THYROID STIMULATING HORMONE 2.886 uIU/ML (0.55-4.78)
[2023-09-29 13:26] LABS: HEMOGLOBIN A1c 9.1 % (4.0-6.0)
== END ==
LOC: M PLALAB 09:33
PROVIDERS: ATTEND Internal Medicine Hematology
DX: E11.9 Type 2 diabetes mellitus without complications (principal)

== ENCOUNTER → 2023-09-30 | Outpatient (REF) | payer MEDICARE, OTHER ==
[2023-09-30 16:48] LABS: CREATININE, URINE 109.9 MG/DL; MAU/CREAT RATIO 7.2 MCG/MG (0.0-30.0)
== END ==
LOC: M SFHCPLAZ 15:09
PROVIDERS: ATTEND Internal Medicine Hematology
DX: E11.9 Type 2 diabetes mellitus without complications (principal)

== ENCOUNTER → 2023-11-05 | Outpatient (CLI) | payer MEDICARE, OTHER | LOC: M ONCR 10:46 | PROVIDERS: ATTEND General Practice | DX: Z08 Encounter for follow-up examination after completed treatment for malignant neoplasm (principal); Z85.3 Personal history of malignant neoplasm of breast; N64.89 Other specified disorders of breast; Z79.810 Long term (current) use of selective estrogen receptor modulators (SERMs); Z79.01 Long term (current) use of anticoagulants; Z79.4 Long term (current) use of insulin; Z79.51 Long term (current) use of inhaled steroids; Z79.84 Long term (current) use of oral hypoglycemic drugs; Z79.85 Long-term (current) use of injectable non-insulin antidiabetic drugs; Z79.899 Other long term (current) drug therapy; Z88.0 Allergy status to penicillin; Z88.1 Allergy status to other antibiotic agents; Z91.048 Other nonmedicinal substance allergy status; Z92.3 Personal history of irradiation ==

== ENCOUNTER → 2024-01-12 | Outpatient (REF) | payer MEDICARE, OTHER ==
[~2024-01-12] MED LIST changes: +ALPR0.25 PO; -CITA20TA6; +CITA20TA6 PO; +METF750T36 PO; -POTA-151; +POTA-151 PO; -SEMA0.257; +SEMA0.257 SC; -TOUJ300I2; +TOUJ300I2 SC
== END ==
LOC: M LAB REF 13:03
PROVIDERS: ATTEND Nurse Practitioner Adult Health
DX: I48.91 Unspecified atrial fibrillation (principal)

== ENCOUNTER 2024-01-15 10:51 | Day surgery (SDC) | payer MEDICARE, OTHER ==
[~2024-01-15] VITALS: Ht 152.4 cm; Wt 64.2 kg
[~2024-01-15 10:51] MED LIST changes: +LIDOCAINE 2% 100MG/5ML SDV (FOR ANES.) As Ordered ONE; +propofoL 200 MG/20 ML VIAL As Ordered ONE
[2024-01-15] MEDS ORDERED: GLUCAGON INJ 1MG VIAL SC PRN (11:25)
[2024-01-15] MEDS ORDERED: GLUCOSE 4 GM CHEW PO PRN (11:25)
[2024-01-15] MEDS ORDERED: DEXTROSE 50% 50ML SYRINGE IV PRN (11:25)
[2024-01-15] MEDS: INSULIN LISPRO (NovoLOG) PER UNIT SC PRN (11:37)
[2024-01-15] MEDS ORDERED: ALBUTEROL 6.7GM INHALER **FOR ANES. CART/OMNICELL ONLY As Ordered ONE (12:46)
[2024-01-15 13:15] VITALS: TEMP 97.6
[2024-01-15 13:43] VITALS: BP 151/80; O2SAT 95
== END 2024-01-15 13:50 | disposition home or self-care (01) ==
LOC: M OPP 10:51
PROVIDERS: ATTEND Surgery
DX: Z12.11 Encounter for screening for malignant neoplasm of colon (principal); Z12.12 Encounter for screening for malignant neoplasm of rectum; D12.2 Benign neoplasm of ascending colon; K29.50 Unspecified chronic gastritis without bleeding; K20.90 Esophagitis, unspecified without bleeding; K44.9 Diaphragmatic hernia without obstruction or gangrene; I48.91 Unspecified atrial fibrillation; I10 Essential (primary) hypertension; E78.00 Pure hypercholesterolemia, unspecified; E11.9 Type 2 diabetes mellitus without complications; Z85.3 Personal history of malignant neoplasm of breast; Z92.21 Personal history of antineoplastic chemotherapy; Z92.3 Personal history of irradiation; Z79.899 Other long term (current) drug therapy; Z79.01 Long term (current) use of anticoagulants; Z79.84 Long term (current) use of oral hypoglycemic drugs; Z79.4 Long term (current) use of insulin; Z79.85 Long-term (current) use of injectable non-insulin antidiabetic drugs; Z79.810 Long term (current) use of selective estrogen receptor modulators (SERMs); Z90.710 Acquired absence of both cervix and uterus; Z88.0 Allergy status to penicillin
CPT/HCPCS: 43239; 45380; 45385; 88305; J1815

== ENCOUNTER → 2024-02-15 | Outpatient (CLI) | payer MEDICARE, OTHER ==
[~2024-02-15] MED LIST changes: -LIDOCAINE 2% 100MG/5ML SDV (FOR ANES.) As Ordered ONE; -propofoL 200 MG/20 ML VIAL As Ordered ONE
== END ==
LOC: M EKG 09:49
PROVIDERS: ATTEND Registered Nurse
DX: I48.0 Paroxysmal atrial fibrillation (principal)

== ENCOUNTER → 2024-03-30 | Outpatient (CLI) | payer MEDICARE, OTHER | LOC: M CARPUL 14:50 | PROVIDERS: ATTEND Registered Nurse | DX: I35.0 Nonrheumatic aortic (valve) stenosis (principal) ==

== ENCOUNTER → 2024-05-10 | Outpatient (REF) | payer MEDICARE, OTHER | LOC: M LAB REF 20:15 | PROVIDERS: ATTEND Physician Assistant | DX: N39.0 Urinary tract infection, site not specified (principal) ==

== ENCOUNTER → 2024-10-06 | Outpatient (REF) | payer MEDICARE, OTHER | LOC: M LAB REF 17:19 | PROVIDERS: ATTEND Nurse Practitioner Adult Health | DX: I48.0 Paroxysmal atrial fibrillation (principal) ==

== ENCOUNTER → 2024-11-29 | Outpatient (CLI) | payer MEDICARE, OTHER | LOC: M ONCR 13:26 | PROVIDERS: ATTEND General Practice | DX: Z08 Encounter for follow-up examination after completed treatment for malignant neoplasm (principal); Z79.01 Long term (current) use of anticoagulants; Z79.4 Long term (current) use of insulin; Z79.810 Long term (current) use of selective estrogen receptor modulators (SERMs); Z79.85 Long-term (current) use of injectable non-insulin antidiabetic drugs; Z79.899 Other long term (current) drug therapy; Z85.3 Personal history of malignant neoplasm of breast; Z82.3 Family history of stroke; Z88.0 Allergy status to penicillin; Z88.1 Allergy status to other antibiotic agents; Z91.048 Other nonmedicinal substance allergy status ==

== ENCOUNTER → 2024-12-17 | Outpatient (REF) | payer MEDICARE, OTHER | LOC: M LAB REF 17:24 | PROVIDERS: ATTEND Physician Assistant | DX: R30.0 Dysuria (principal) ==